=== PATIENT | male | born 1955 | race Caucasian/White ===

== ENCOUNTER 2016-12-23 19:22 | Emergency (ER) | payer MEDICARE, OTHER ==
[~2016-12-23 19:22] MED LIST: ADVAIR DISKU1 INH; AMOXICILLIN250 MG PO; AUGMENTIN875 MG PO; CLARITIN10 MG PO; CLINDAMAX1 %; COLACE100 MG PO; CYCLOBENZAPRINE10 MG PO; FLOVENT HFA110 MCG IN; IBUPROFEN600 MG PO; KEFLEX500 M1 PO; LANTUS SOL100 UNITS/ SC; METFORMIN HCL500 MG PO; MIRALAX3350 N1 PO; MORPHINE SULFAT15 M1 PO; NEURONTIN300 MG PO; NITROSTAT0.4 MG SL; NOVOLOG PE100 UNITS/ SC; OMEPRAZOLE20 M1 PO; PERCOCET1 TA1 PO; PROAIR HFA IN; ZESTRIL10 MG PO
--- NOTE | 2016-12-23 20:21 | ED CLINICAL REPORT ---
Clinical Report - Physicians/Mid Levels [facility] [address] [place] [address] 12/23/2016 19:23 Patient: TAL CANO Time Seen: 19:40. Arrived- By private vehicle. Historian- patient. HISTORY OF PRESENT ILLNESS Chief Complaint: BACK PAIN. It is described as being in the area of the right SI joint. Modifying factors. (worse with movement). Onset- several days to weeks ago; Back surgery 3 years ago, infection , skin graft and foot graft. No bladder dysfunction, bowel dysfunction or motor loss. Sensory loss involving the right lower leg. Additional history - Took morphine for similar pain formerly- His pain [facility] consultant's clinic was forced to close. Now no morphine for his pain for 3 weeks. No other injury. Similar symptoms previously: Many times. Recent medical care: Not recently seen/assessed. REVIEW OF SYSTEMS No fever, sore throat, cough, difficulty breathing or chest pain. No abdominal pain. PAST HISTORY PCP: Ehsan [facility] Illness: Chronic pain - Right leg. DM Forniers gangreen with excision and skin grafting ADDITIONAL SURGERIES: Carpal Tunnel Surgery. Cholecystectomy. Knee Surgery. Rectal. Scrotal surgery. Tonsillectomy. ADDITIONAL NOTES The nursing notes have been reviewed. PHYSICAL EXAM Vital Signs: 12/23/2016 20:51 BP: 130/50. HR: 72. RR: 20. O2 saturation: 99%. 12/23/2016 19:52 BP: 132/61. HR: 72. RR: 16. O2 saturation: 100%. Temp: 98.1 F. Appearance: Alert. Patient in mild distress. (Moving fairly well. Very cooperative and well spoken not advocating for morphine). CVS: Heart sounds normal. Respiratory: No respiratory distress. Breath sounds normal. Abdomen: No visible injury. Soft and nontender. Obese. Back: Soft tissue tenderness in the right lower lumbar area. No CVA tenderness. Skin: Skin warm. Normal skin color. Extremities: Extremities exhibit normal ROM. Extremities nontender. Neuro: Altered mental status. No cranial nerve deficit. He has had weakness, (He had a pre existing R foot drop which is not new.). Sensory deficit present. (mild decrease in sensaton in R leg. Similar to prior.). CLINICAL IMPRESSION Acute right sided lumbar radiculopathy. Acute lumbar strain. INSTRUCTIONS (CONTINUE TO TRY TO GET A NEW PAIN DRJayla). Prescription Medications: Hydrocodone/APAP 5mg / 325mg: take 1-2 orally every 4 hours as needed for pain. Dispense twenty (20). No refill. (IF YOU HAVE HYDOROCODE WITHOUT APAP PLEASE SUBSTITUTE THAT.) Robaxin 750 mg: Take 2 orally every 6 hours as needed for muscle spasm. Dispense thirty (30). No refills. Substitution is permissible. Follow-up: Follow up with your doctor in seven days. Understanding of the discharge instructions verbalized by patient. (Electronically signed by Aime Bermudez MD 12/25/2016 23:14)
--- NOTE | 2016-12-23 20:21 | ED NURSING NOTES ---
Clinical Report - Nurses [facility] [address] [place] [address] 12/23/2016 19:23 Patient: TAL CANO TRIAGE Triage time 19:40. Acuity: LEVEL 3. Chief Complaint: (Right flank pain). 19:52 12/23/16. Alert. No acute distress. --19:52 Enoch Koch R.N. 19:52 12/23/16. BP: 132/61. HR: 72. RR: 16. O2 saturation: 100%. Temp: 98.1 F. Pain level now 8/10. --19:52 Enoch Koch R.N. Weight: 127 kg stated. Height/Length: 67 inches Per Patient. BMI: 43.9. --19:48 Enoch Koch R.N. Medications Advair Diskus Inhalation (Aerosol Powder Breath Activated 250-50 mcg/dose), daily. Atorvastatin Calcium Oral (Tablet 20 mg) 1 tablet, daily. Clotrimazole External. Cyclobenzaprine HCl Oral 10 mg, 3x a day. --19:51 Enoch Koch R.N. Fexofenadine HCl Oral (Tablet 180 mg) 1 tablet. Fluticasone Propionate (Inhal) Inhalation. Gabapentin Oral 300 mg, 3x a day. Ibuprofen Oral 800 mg, daily. Lantus Subcutaneous 35 units, every PM. Lisinopril Oral (Tablet 20 mg), 2x a day (1 tab in am and 1/2 tab in afternoon). Loratadine Oral 10 mg, daily. MetFORMIN HCl Oral (Tablet 1000 mg) 1 tablet, daily. Morphine Sulfate Oral 15mg 2-3 tablets daily. Nitrostat Sublingual 0.4 mg, as needed. NovoLOG Subcutaneous 45 units, before meals (45-50 Units at HS). Omeprazole Oral (Tablet Delayed Release 20 mg) 1 tablet, 2x a day. ProAir HFA Inhalation 90 mcg Inhaler, as needed. --19:51 Enoch Koch R.N. Allergies Beta Adrenergic Blockers.(anxiety) --19:51 Enoch Koch R.N. History Arrived by private vehicle. Historian: patient. Accompanied by family. Primary physician (vinod). ( c/o right flank pain, denies any urinary symptoms. States pain is radiating down right leg.). Onset. (2 days ago). Treatment [employer]: None. SOCIAL HX: Former smoker, end date 1991. No alcohol use or drug use. FALL RISK ASSESSMENT: Fall risk assessment completed. No fall risk identified. NUTRITIONAL RISK ASSESSMENT: The nutritional risk assessment revealed no deficiencies. FUNCTIONAL ASSESSMENT: Functional assessment: no impairments noted. LEARNING NEEDS ASSESSMENT: The learning needs assessment revealed no barriers. SKIN INTEGRITY ASSESSMENT: Skin integrity risk assessment completed. No skin integrity risk identified. --19:52 Enoch Koch R.N. PROBLEMS: Perirectal Abscess. Knee Injury. Prior Nosebleeds. Foot Fracture. Abscess. Recent Travel. Allergic Rhinitis. Sinus Problems. Epistaxis. Sinusitis. Contusion. Anemia. Abnormal Liver Function Test. Constipation. Pneumonia. Coronary Artery Disease. Fever. Abdominal Pain. Atypical Chest Pain. Otitis Externa. TMJ Syndrome. Ingrown Toenail. Immunizations. Lifestyle / Substance Problems. Abnormal Test. Upper Extremity Pain. Paresthesia. Tetanus Status. Sleep Apnea. Asthma. Hypercholesterolemia. Hypertension. Diabetes Mellitus. Gastroesophageal Reflux Disease. --19:52 Enoch Koch R.N. ADDITIONAL SURGERIES: Carpal Tunnel Surgery. Cholecystectomy. Knee Surgery. Rectal. Scrotal surgery. Tonsillectomy. --19:52 Enoch Koch R.N. Interventions ID band on patient. To treatment room. --19:52 Enoch Koch R.N. PHYSICAL ASSESSMENT 19:52 12/23/16. Ambulatory to room. GENERAL / NEURO / PSYCH: Alert. Oriented X 4. Appears in pain. HEENT: Mucous membranes are pink. RESPIRATORY: Respirations not labored. CVS: Capillary refill less than 2 seconds. GI / : CVA tenderness. SKIN: Skin is warm and dry. --19:52 Enoch Koch R.N. NURSING PROGRESS NOTES 20:04 12/23/16. The plan of care for this patient has been created. Patient gowned. Head of bed elevated. Call light placed in reach. Bed placed in lowest position. Brakes of bed on. Patient ready for evaluation- chart flagged. --20:04 Enoch Koch R.N. DISPOSITION / DISCHARGE 20:51 12/23/16. Departure time: 2047. Condition at departure: unchanged and stable. No learning barriers present. Discharge instructions provided and reviewed with the patient and family. Reviewed medication(s) side effects, precautions, dosing and course information. Prescription(s) given to the patient. Patient verbalized understanding. Written instructions provided in Croatian. The patient was discharged by the physician. He was discharged home and accompanied by family. He left the Emergency Department ambulatory and via private vehicle. Family member driving. --20:51 Enoch Koch R.N. 20:51 12/23/16. BP: 130/50. HR: 72. RR: 20. O2 saturation: 99%. Pain level now 10/10. --20:51 Enoch Koch R.N. Locked/Released at 12/30/2016 8:59 by Marimar Carter R.N.
--- NOTE | 2016-12-23 20:21 | ED CLINICAL REPORT ---
Clinical Report - Physicians/Mid Levels [facility] [address] [place] [address] 12/23/2016 19:23 Patient: TAL CANO Time Seen: 19:40. Arrived- By private vehicle. Historian- patient. HISTORY OF PRESENT ILLNESS Chief Complaint: BACK PAIN. It is described as being in the area of the right SI joint. Modifying factors. (worse with movement). Onset- several days to weeks ago; Back surgery 3 years ago, infection , skin graft and foot graft. No bladder dysfunction, bowel dysfunction or motor loss. Sensory loss involving the right lower leg. Additional history - Took morphine for similar pain formerly- His pain [employer] consultant's clinic was forced to close. Now no morphine for his pain for 3 weeks. No other injury. Similar symptoms previously: Many times. Recent medical care: Not recently seen/assessed. REVIEW OF SYSTEMS No fever, sore throat, cough, difficulty breathing or chest pain. No abdominal pain. PAST HISTORY PCP: Ehsan PPG Illness: Chronic pain - Right leg. DM Forniers gangreen with excision and skin grafting ADDITIONAL SURGERIES: Carpal Tunnel Surgery. Cholecystectomy. Knee Surgery. Rectal. Scrotal surgery. Tonsillectomy. ADDITIONAL NOTES The nursing notes have been reviewed. PHYSICAL EXAM Vital Signs: 12/23/2016 20:51 BP: 130/50. HR: 72. RR: 20. O2 saturation: 99%. 12/23/2016 19:52 BP: 132/61. HR: 72. RR: 16. O2 saturation: 100%. Temp: 98.1 F. Appearance: Alert. Patient in mild distress. (Moving fairly well. Very cooperative and well spoken not advocating for morphine). CVS: Heart sounds normal. Respiratory: No respiratory distress. Breath sounds normal. Abdomen: No visible injury. Soft and nontender. Obese. Back: Soft tissue tenderness in the right lower lumbar area. No CVA tenderness. Skin: Skin warm. Normal skin color. Extremities: Extremities exhibit normal ROM. Extremities nontender. Neuro: Altered mental status. No cranial nerve deficit. He has had weakness, (He had a pre existing R foot drop which is not new.). Sensory deficit present. (mild decrease in sensaton in R leg. Similar to prior.). CLINICAL IMPRESSION Acute right sided lumbar radiculopathy. Acute lumbar strain. INSTRUCTIONS (CONTINUE TO TRY TO GET A NEW PAIN DRJayla). Prescription Medications: Hydrocodone/APAP 5mg / 325mg: take 1-2 orally every 4 hours as needed for pain. Dispense twenty (20). No refill. (IF YOU HAVE HYDOROCODE WITHOUT APAP PLEASE SUBSTITUTE THAT.) Robaxin 750 mg: Take 2 orally every 6 hours as needed for muscle spasm. Dispense thirty (30). No refills. Substitution is permissible. Follow-up: Follow up with your doctor in seven days. Understanding of the discharge instructions verbalized by patient. (Electronically signed by Aime Bermudez MD 12/25/2016 23:14)
--- NOTE | 2016-12-23 20:21 | ED NURSING NOTES ---
Clinical Report - Nurses [facility] [address] [place] [address] 12/23/2016 19:23 Patient: TAL CANO TRIAGE Triage time 19:40. Acuity: LEVEL 3. Chief Complaint: (Right flank pain). 19:52 12/23/16. Alert. No acute distress. --19:52 Enoch Koch R.N. 19:52 12/23/16. BP: 132/61. HR: 72. RR: 16. O2 saturation: 100%. Temp: 98.1 F. Pain level now 8/10. --19:52 Enoch Koch R.N. Weight: 127 kg stated. Height/Length: 67 inches Per Patient. BMI: 43.9. --19:48 Enoch Koch R.N. Medications Advair Diskus Inhalation (Aerosol Powder Breath Activated 250-50 mcg/dose), daily. Atorvastatin Calcium Oral (Tablet 20 mg) 1 tablet, daily. Clotrimazole External. Cyclobenzaprine HCl Oral 10 mg, 3x a day. --19:51 Enoch Koch R.N. Fexofenadine HCl Oral (Tablet 180 mg) 1 tablet. Fluticasone Propionate (Inhal) Inhalation. Gabapentin Oral 300 mg, 3x a day. Ibuprofen Oral 800 mg, daily. Lantus Subcutaneous 35 units, every PM. Lisinopril Oral (Tablet 20 mg), 2x a day (1 tab in am and 1/2 tab in afternoon). Loratadine Oral 10 mg, daily. MetFORMIN HCl Oral (Tablet 1000 mg) 1 tablet, daily. Morphine Sulfate Oral 15mg 2-3 tablets daily. Nitrostat Sublingual 0.4 mg, as needed. NovoLOG Subcutaneous 45 units, before meals (45-50 Units at HS). Omeprazole Oral (Tablet Delayed Release 20 mg) 1 tablet, 2x a day. ProAir HFA Inhalation 90 mcg Inhaler, as needed. --19:51 Enoch Koch R.N. Allergies Beta Adrenergic Blockers.(anxiety) --19:51 Enoch Koch R.N. History Arrived by private vehicle. Historian: patient. Accompanied by family. Primary physician (vinod). ( c/o right flank pain, denies any urinary symptoms. States pain is radiating down right leg.). Onset. (2 days ago). Treatment LOB[employer] MAN: None. SOCIAL HX: Former smoker, end date 1991. No alcohol use or drug use. FALL RISK ASSESSMENT: Fall risk assessment completed. No fall risk identified. NUTRITIONAL RISK ASSESSMENT: The nutritional risk assessment revealed no deficiencies. FUNCTIONAL ASSESSMENT: Functional assessment: no impairments noted. LEARNING NEEDS ASSESSMENT: The learning needs assessment revealed no barriers. SKIN INTEGRITY ASSESSMENT: Skin integrity risk assessment completed. No skin integrity risk identified. --19:52 Enoch Koch R.N. PROBLEMS: Perirectal Abscess. Knee Injury. Prior Nosebleeds. Foot Fracture. Abscess. Recent Travel. Allergic Rhinitis. Sinus Problems. Epistaxis. Sinusitis. Contusion. Anemia. Abnormal Liver Function Test. Constipation. Pneumonia. Coronary Artery Disease. Fever. Abdominal Pain. Atypical Chest Pain. Otitis Externa. TMJ Syndrome. Ingrown Toenail. Immunizations. Lifestyle / Substance Problems. Abnormal Test. Upper Extremity Pain. Paresthesia. Tetanus Status. Sleep Apnea. Asthma. Hypercholesterolemia. Hypertension. Diabetes Mellitus. Gastroesophageal Reflux Disease. --19:52 Enoch Koch R.N. ADDITIONAL SURGERIES: Carpal Tunnel Surgery. Cholecystectomy. Knee Surgery. Rectal. Scrotal surgery. Tonsillectomy. --19:52 Enoch Koch R.N. Interventions ID band on patient. To treatment room. --19:52 Enoch Koch R.N. PHYSICAL ASSESSMENT 19:52 12/23/16. Ambulatory to room. GENERAL / NEURO / PSYCH: Alert. Oriented X 4. Appears in pain. HEENT: Mucous membranes are pink. RESPIRATORY: Respirations not labored. CVS: Capillary refill less than 2 seconds. GI / : CVA tenderness. SKIN: Skin is warm and dry. --19:52 Enoch Koch R.N. NURSING PROGRESS NOTES 20:04 12/23/16. The plan of care for this patient has been created. Patient gowned. Head of bed elevated. Call light placed in reach. Bed placed in lowest position. Brakes of bed on. Patient ready for evaluation- chart flagged. --20:04 Enoch Koch R.N. DISPOSITION / DISCHARGE 20:51 12/23/16. Departure time: 2047. Condition at departure: unchanged and stable. No learning barriers present. Discharge instructions provided and reviewed with the patient and family. Reviewed medication(s) side effects, precautions, dosing and course information. Prescription(s) given to the patient. Patient verbalized understanding. Written instructions provided in Latvian. The patient was discharged by the physician. He was discharged home and accompanied by family. He left the Emergency Department ambulatory and via private vehicle. Family member driving. --20:51 Enoch Koch R.N. 20:51 12/23/16. BP: 130/50. HR: 72. RR: 20. O2 saturation: 99%. Pain level now 10/10. --20:51 Enoch Koch R.N. Locked/Released at 12/30/2016 8:59 by Marimar Carter R.N.
--- NOTE | 2016-12-30 08:59 | ED DISCHARGE INSTRUCTIONS ---
Patient: TAL CANO General Instructions [facility] VisitID: [id number] [address] [place] [address] 61y, M Registration Date/Time: 12/23/2016 Acute right sided lumbar radiculopathy. Acute lumbar strain. INSTRUCTIONS (CONTINUE TO TRY TO GET A NEW PAIN DR.). Prescription Medications: Hydrocodone/APAP 5mg / 325mg: take 1-2 orally every 4 hours as needed for pain. Dispense twenty (20). No refill. (IF YOU HAVE HYDOROCODE WITHOUT APAP PLEASE SUBSTITUTE THAT.) Robaxin 750 mg: Take 2 orally every 6 hours as needed for muscle spasm. Dispense thirty (30). No refills. Substitution is permissible. Follow-up: Follow up with your doctor in seven days. Understanding of the discharge instructions verbalized by patient. ADDITIONAL INFORMATION Sciatica Sciatica ("Lumbar Radiculopathy") causes a pain that spreads from the lower back down into the buttock, hip and leg. Sometimes leg pain can occur without any back pain. Sciatica is due to irritation or pressure on a spinal nerve as it comes out of the spinal canal. This is most often due to a bulge or rupture of a nearby spinal disk (the cartilage cushion between each spinal bone), which presses on a nearby nerve. Other causes include spinal stenosis (narrowing of the spinal canal) and spasm of the pyriform muscle (a muscle in the buttocks that the sciatic nerve passes through). Sciatica may begin after a sudden twisting/bending force (such as in a car accident), or sometimes after a simple awkward movement. In either case, muscle spasm is commonly present and contributes to the pain. The diagnosis of sciatica is made from the symptoms and physical exam. Unless you had a physical injury (such as a car accident or fall), X-rays are usually not ordered for the initial evaluation of sciatica because the nerves and disks cannot be seen on an x-ray. If signs of a compressed nerve are present (for example, loss of tendon reflex or strength in the leg), an MRI (magnetic resonance imaging) scan will need to be scheduled as an outpatient. Most sciatica (80-90%) gets better with medicine, exercise, physical therapy. If symptoms continue after at least three months of medical treatment, surgery may be considered. Home Care: You may need to stay in bed the first few days. But, as soon as possible, begin sitting or walking to avoid problems with prolonged bed rest. When in bed, try to find a position of comfort. A firm mattress is best. Try lying flat on your back with pillows under your knees. You can also try lying on your side with your knees bent up towards your chest and a pillow between your knees. Avoid prolonged sitting. This puts more stress on the lower back than standing or walking. Some persons find relief with heat (hot shower, hot bath or heating pad) and massage, while others prefer cold packs (crushed or cubed ice in a plastic bag, wrapped in a towel). Try both and use the method that feels best for 20 minutes several times a day. You may use acetaminophen (Tylenol) or ibuprofen (Motrin, Advil) to control pain, unless another pain medicine was prescribed. [ NOTE: If you have chronic liver or kidney disease or ever had a stomach ulcer or GI bleeding, talk with your doctor before using these medicines.] Be aware of safe lifting methods and do not lift anything over 15 pounds until all the pain is gone. Follow Up with your doctor or this facility if your symptoms do not start to improve after one week. Physical therapy or further testing may be needed. [NOTE: If X-rays were taken, they will be reviewed by a radiologist. You will be notified of any new findings that may affect your care.] Get Prompt Medical Attention if any of the following occur: Pain becomes worse, not controlled by the prescribed medicine Weakness or numbness in one or both legs Numbness in the groin, genital area Loss of bowel or bladder control Sciatica Sciatica ("Lumbar Radiculopathy") causes a pain that spreads from the lower back down into the buttock, hip and leg. Sometimes leg pain can occur without any back pain. Sciatica is due to irritation or pressure on a spinal nerve as it comes out of the spinal canal. This is most often due to a bulge or rupture of a nearby spinal disk (the cartilage cushion between each spinal bone), which presses on a nearby nerve. Other causes include spinal stenosis (narrowing of the spinal canal) and spasm of the pyriform muscle (a muscle in the buttocks that the sciatic nerve passes through). Sciatica may begin after a sudden twisting/bending force (such as in a car accident), or sometimes after a simple awkward movement. In either case, muscle spasm is commonly present and contributes to the pain. The diagnosis of sciatica is made from the symptoms and physical exam. Unless you had a physical injury (such as a car accident or fall), X-rays are usually not ordered for the initial evaluation of sciatica because the nerves and disks cannot be seen on an x-ray. If signs of a compressed nerve are present (for example, loss of tendon reflex or strength in the leg), an MRI (magnetic resonance imaging) scan will need to be scheduled as an outpatient. Most sciatica (80-90%) gets better with medicine, exercise, physical therapy. If symptoms continue after at least three months of medical treatment, surgery may be considered. Home Care: You may need to stay in bed the first few days. But, as soon as possible, begin sitting or walking to avoid problems with prolonged bed rest. When in bed, try to find a position of comfort. A firm mattress is best. Try lying flat on your back with pillows under your knees. You can also try lying on your side with your knees bent up towards your chest and a pillow between your knees. Avoid prolonged sitting. This puts more stress on the lower back than standing or walking. Some persons find relief with heat (hot shower, hot bath or heating pad) and massage, while others prefer cold packs (crushed or cubed ice in a plastic bag, wrapped in a towel). Try both and use the method that feels best for 20 minutes several times a day. You may use acetaminophen (Tylenol) or ibuprofen (Motrin, Advil) to control pain, unless another pain medicine was prescribed. [ NOTE: If you have chronic liver or kidney disease or ever had a stomach ulcer or GI bleeding, talk with your doctor before using these medicines.] Be aware of safe lifting methods and do not lift anything over 15 pounds until all the pain is gone. Follow Up with your doctor or this facility if your symptoms do not start to improve after one week. Physical therapy or further testing may be needed. [NOTE: If X-rays were taken, they will be reviewed by a radiologist. You will be notified of any new findings that may affect your care.] Get Prompt Medical Attention if any of the following occur: Pain becomes worse, not controlled by the prescribed medicine Weakness or numbness in one or both legs Numbness in the groin, genital area Loss of bowel or bladder control Hydrocodone Bitartrate, Acetaminophen Oral tablet What is this medicine? ACETAMINOPHEN; HYDROCODONE (a set a HEATHER arthur fen; robby droe KOE done) is a pain reliever. It is used to treat mild to moderate pain. How should I use this medicine? Take this medicine by mouth. Swallow it with a full glass of water. Follow the directions on the prescription label. If the medicine upsets your stomach, take the medicine with food or milk. Do not take more than you are told to take. Talk to your delivery supervisor regarding the use of this medicine in children. This medicine is not approved for use in children. What side effects may I notice from receiving this medicine? Side effects that you should report to your doctor or health personal care service provider as soon as possible: allergic reactions like skin rash, itching or hives, swelling of the face, lips, or tongue breathing problems confusion feeling faint or lightheaded, falls stomach pain yellowing of the eyes or skin Side effects that usually do not require medical attention (report to your doctor or health personal care service provider if they continue or are bothersome): nausea, vomiting stomach upset What may interact with this medicine? alcohol antihistamines isoniazid medicines for depression, anxiety, or psychotic disturbances medicines for sleep muscle relaxants naltrexone narcotic medicines (opiates) for pain phenobarbital ritonavir tramadol What if I miss a dose? If you miss a dose, take it as soon as you can. If it is almost time for your next dose, take only that dose. Do not take double or extra doses. Where should I keep my medicine? Keep out of the reach of children. This medicine can be abused. Keep your medicine in a safe place to protect it from theft. Do not share this medicine with anyone. Selling or giving away this medicine is dangerous and against the law. Store at room temperature between 15 and 30 degrees C (59 and 86 degrees F). Protect from light. Keep container tightly closed. Throw away any unused medicine after the expiration date. Discard unused medicine and used packaging carefully. Pets and children can be harmed if they find used or lost packages. What should I tell my health care provider before I take this medicine? They need to know if you have any of these conditions: brain tumor Crohn's disease, inflammatory bowel disease, or ulcerative colitis drink more than 3 alcohol-containing drinks per day drug abuse or addiction head injury heart or circulation problems kidney disease or problems going to the bathroom liver disease lung disease, asthma, or breathing problems an unusual or allergic reaction to acetaminophen, hydrocodone, other opioid analgesics, other medicines, foods, dyes, or preservatives or trying to get breast-feeding What should I watch for while using this medicine? Tell your doctor or health personal care service provider if your pain does not go away, if it gets worse, or if you have new or a different type of pain. You may develop tolerance to the medicine. Tolerance means that you will need a higher dose of the medicine for pain relief. Tolerance is normal and is expected if you take the medicine for a long time. Do not suddenly stop taking your medicine because you may develop a severe reaction. Your body becomes used to the medicine. This does NOT mean you are addicted. Addiction is a behavior related to getting and using a drug for a non-medical reason. If you have pain, you have a medical reason to take pain medicine. Your doctor will tell you how much medicine to take. If your doctor wants you to stop the medicine, the dose will be slowly lowered over time to avoid any side effects. You may get drowsy or dizzy when you first start taking the medicine or change doses. Do not drive, use machinery, or do anything that may be dangerous until you know how the medicine affects you. Stand or sit up slowly. There are different types of narcotic medicines (opiates) for pain. If you take more than one type at the same time, you may have more side effects. Give your health care provider a list of all medicines you use. Your doctor will tell you how much medicine to take. Do not take more medicine than directed. Call emergency for help if you have problems breathing. The medicine will cause constipation. Try to have a bowel movement at least every 2 to 3 days. If you do not have a bowel movement for 3 days, call your doctor or health personal care service provider. Too much acetaminophen can be very dangerous. Do not take Tylenol (acetaminophen) or medicines that contain acetaminophen with this medicine. Many non-prescription medicines contain acetaminophen. Always read the labels carefully. You have been given the following additional information: Back Pain W/ Sciatica Back Pain W/ Sciatica Hydrocodone Bitartrate, Acetaminophen Oral tablet (Electronically signed by Aime Bermudez MD 12/25/2016 23:14)
--- NOTE | 2016-12-30 08:59 | ED MAR SUMMARY ---
..... Medication Administration Record [facility] [address] [place], [place] [id number] Patient: TAL CANO Visit ID: [id number] 61y, M Weight: 127.0 kg Height/Length: 67 in BMI: 43.9 ALLERGIES: Beta Adrenergic Blockers
--- NOTE | 2016-12-30 08:59 | ED MED RECONCILIATION SUMMARY ---
Patient: TAL CANO Medication Reconciliation Report [facility] VisitID: [id number] [address] [place] [address] 61y, M Registration Date/Time: 12/23/2016 Weight: 127.0 kg Height/Length: 67 in. BMI: 43.9 ALLERGIES: Beta Adrenergic Blockers The patient's Home Medications are listed below: THE FOLLOWING MEDICATIONS NEED TO BE RECONCILED: Advair Diskus Inhalation (250-50 mcg/dose), daily Atorvastatin Calcium Oral (20 mg) 1 tablet, daily Clotrimazole External Cyclobenzaprine HCl Oral 10 mg, 3x a day Fexofenadine HCl Oral (180 mg) 1 tablet Fluticasone Propionate (Inhal) Inhalation Gabapentin Oral 300 mg, 3x a day Ibuprofen Oral 800 mg, daily Lantus Subcutaneous 35 units, every PM Lisinopril Oral (20 mg), 2x a day, 1 tab in am and 1/2 tab in afternoon Loratadine Oral 10 mg, daily MetFORMIN HCl Oral (1000 mg) 1 tablet, daily Morphine Sulfate Oral 15mg 2-3 tablets daily Nitrostat Sublingual 0.4 mg NovoLOG Subcutaneous 45 units, before meals, 45-50 Units at HS Omeprazole Oral (20 mg) 1 tablet, 2x a day ProAir HFA Inhalation 90 mcg Inhaler The source(s) of the original Home Medication information: Not obtained. The following Medications were given to the patient in the Emergency Department: None. The following Medications were prescribed to the patient: Hydrocodone/APAP 5mg / 325mg: take 1-2 orally every 4 hours as needed for pain. Dispense twenty (20). No refill.(IF YOU HAVE HYDOROCODE WITHOUT APAP PLEASE SUBSTITUTE THAT.) -- Aime Bermudez MD Robaxin 750 mg: Take 2 orally every 6 hours as needed for muscle spasm. Dispense thirty (30). No refills. Substitution is permissible. -- Aime Bermudez MD
--- NOTE | 2016-12-30 08:59 | ED MAR SUMMARY ---
..... Medication Administration Record [facility] [address] [place], [place] [id number] Patient: TAL CANO Visit ID: [id number] 61y, M Weight: 127.0 kg Height/Length: 67 in BMI: 43.9 ALLERGIES: Beta Adrenergic Blockers
--- NOTE | 2016-12-30 08:59 | ED MED RECONCILIATION SUMMARY ---
Patient: TAL CANO Medication Reconciliation Report [facility] VisitID: [id number] [address] [place] [address] 61y, M Registration Date/Time: 12/23/2016 Weight: 127.0 kg Height/Length: 67 in. BMI: 43.9 ALLERGIES: Beta Adrenergic Blockers The patient's Home Medications are listed below: THE FOLLOWING MEDICATIONS NEED TO BE RECONCILED: Advair Diskus Inhalation (250-50 mcg/dose), daily Atorvastatin Calcium Oral (20 mg) 1 tablet, daily Clotrimazole External Cyclobenzaprine HCl Oral 10 mg, 3x a day Fexofenadine HCl Oral (180 mg) 1 tablet Fluticasone Propionate (Inhal) Inhalation Gabapentin Oral 300 mg, 3x a day Ibuprofen Oral 800 mg, daily Lantus Subcutaneous 35 units, every PM Lisinopril Oral (20 mg), 2x a day, 1 tab in am and 1/2 tab in afternoon Loratadine Oral 10 mg, daily MetFORMIN HCl Oral (1000 mg) 1 tablet, daily Morphine Sulfate Oral 15mg 2-3 tablets daily Nitrostat Sublingual 0.4 mg NovoLOG Subcutaneous 45 units, before meals, 45-50 Units at HS Omeprazole Oral (20 mg) 1 tablet, 2x a day ProAir HFA Inhalation 90 mcg Inhaler The source(s) of the original Home Medication information: Not obtained. The following Medications were given to the patient in the Emergency Department: None. The following Medications were prescribed to the patient: Hydrocodone/APAP 5mg / 325mg: take 1-2 orally every 4 hours as needed for pain. Dispense twenty (20). No refill.(IF YOU HAVE HYDOROCODE WITHOUT APAP PLEASE SUBSTITUTE THAT.) -- Aime Bermudez MD Robaxin 750 mg: Take 2 orally every 6 hours as needed for muscle spasm. Dispense thirty (30). No refills. Substitution is permissible. -- Aime Bermudez MD
== END 2016-12-23 20:48 | disposition home or self-care (01) ==
LOC: ED SRH 19:22
DX: S39.012A Strain of muscle, fascia and tendon of lower back, initial encounter (principal); M54.16 Radiculopathy, lumbar region; X58.XXXA Exposure to other specified factors, initial encounter; Y93.9 Activity, unspecified; Y92.9 Unspecified place or not applicable; Y99.9 Unspecified external cause status; E11.9 Type 2 diabetes mellitus without complications; Z79.4 Long term (current) use of insulin; Z88.8 Allergy status to other drugs, medicaments and biological substances; Z79.899 Other long term (current) drug therapy

== ENCOUNTER 2017-02-24 14:30 | Emergency (ER) | payer MEDICARE, OTHER ==
--- NOTE | 2017-02-24 19:08 | DIAGNOSTIC IMAGING REPORT ---
PROCEDURE: CT ABD/PELVIS WITH CONTRAST CLINICAL INDICATION: History of rectal abscess surgery (rate most recently 01/28/2017). History of cirrhosis right abdominal pain the TECHNIQUE: 145 ml of Isovue 300 were injected intravenously and axial images were obtained of the entire abdomen and pelvis with sagittal and coronal reformations. COMPARISON: Compared to CT abdomen and pelvis on 07/11/2016. FINDINGS: ABDOMEN: Cholecystectomy (surgical clips). Cirrhosis of the liver. Marked splenomegaly (26 cm) with portal hypertension. Pancreas, kidneys, and aorta are normal. Bowel pattern is normal, including appendix. PELVIS: Interim evacuation and drainage of right posterior perirectal abscess with moderate residual soft tissue thickening. No evidence of fluid collection. The rest of pelvic structures are normal. IMPRESSION: 1. Cholecystectomy. 2. Cirrhosis with portal hypertension and marked splenomegaly (26 cm). (Previously documented). 3. Otherwise negative abdomen. 4. Interim drainage of right posterior perirectal abscess with residual soft tissue thickening. No evidence of recurrent fluid collection. 5. Findings discussed with Dr. Scott Barnes. All CT scans at this facility use dose modulation, iterative reconstruction, and/or weight-based dosing when appropriate to reduce radiation dose to as low as reasonably achievable.
--- NOTE | 2017-02-24 19:58 | ED CLINICAL REPORT ---
Clinical Report - Physicians/Mid Levels [facility] [address] [place] [address] 02/24/2017 14:30 Patient: TAL CANO Time Seen: 14:58; initial patient contact. Arrived- By private vehicle. Historian- patient. HISTORY OF PRESENT ILLNESS Chief Complaint: ABDOMINAL PAIN. At its maximum, severity described as mild. When seen in the E.D., severity described as mild. Modifying factors. Not worsened by anything. Not relieved by anything. It is described as cramping and it is described as located in the right pelvis and radiating to the right lower back. This started about 3 days ago and is still present. No nausea, vomiting or diarrhea. (Similar to episodes when a perirectal fistula acts up. Denies current drainage from fistula.). Similar symptoms previously: Many times. Recent medical care: Not recently seen/assessed. REVIEW OF SYSTEMS No constipation, bloody stools, fever or chills. All systems otherwise negative, except as recorded above. PAST HISTORY Lumbar Radiculopathy. Perirectal Abscess. Foot Fracture. Abscess. Allergic Rhinitis. Epistaxis. Contusion. Anemia. Abnormal Liver Function Test. Pneumonia. Coronary Artery Disease. Abdominal Pain. Atypical Chest Pain. Otitis Externa. TMJ Syndrome. Lifestyle / Substance Problems. Paresthesia. Sleep Apnea. Gastroesophageal Reflux Disease. Hypercholesterolemia. Asthma. Diabetes Mellitus. Hypertension. Cervical Radiculopathy [ ADDITIONAL SURGERIES: Carpal Tunnel Surgery. Cholecystectomy. Knee Surgery. Mesh implant for rectum fistula. Rectal. Scrotal surgery. Tonsillectomy. SOCIAL HISTORY Former smoker. Alcohol use. Patient is a recovering alcoholic. No drug use. ADDITIONAL NOTES The nursing notes have been reviewed. PHYSICAL EXAM Vital Signs: 02/24/2017 14:45 BP: 147/50. HR: 72. RR: 15. O2 saturation: 100%. Temp: 98.2 F. Pain level now: 8/10. Have been reviewed. Hypertensive. Heart rate normal. Respiratory rate normal. Temperature normal. Oxygen saturation normal. Appearance: Alert. Oriented X3. No acute distress. Eyes: Eyes normal inspection. ENT: Pharynx normal. CVS: Normal heart rate and rhythm. Heart sounds normal. Respiratory: No respiratory distress. Breath sounds normal. Abdomen: Soft. Mild tenderness in the right lower quadrant. No guarding or rebound tenderness. Bowel sounds normal. No organomegaly. No mass. Back: Normal inspection. No CVA tenderness. Rectal: (Well healed perirectal fistula. Non-tender. No fluctuance or drainage.). Skin: Skin warm and dry. Normal skin color. No rash. Extremities: No lower extremity edema. Neuro: Oriented X 3. No motor deficit. LABS, X-RAYS, AND EKG Abdominal CT: 1. Cholecystectomy. 2. Cirrhosis with portal hypertension and marked splenomegaly (26 cm). (Previously documented). 3. Otherwise negative abdomen. 4. Interim drainage of right posterior perirectal abscess with residual soft tissue thickening. No evidence of recurrent fluid collection. Study type: abdomen and pelvis. Abdominal CT performed with IV contrast. The study was interpreted by the radiologist and discussed with the radiologist. Laboratory Tests: UA-Culture if indicated: (CITLALI: 02/24/2017 15:10) ( [facility] 02/24/2017 16:26) Final results Test Result Flag Units (Reference) URINE COLOR YELLOW URINE APPEARANCE CLEAR URINE GLUCOSE 3+ (NEGATIVE) URINE BILIRUBIN NEGATIVE (NEGATIVE) URINE KETONE NEGATIVE (NEGATIVE) URINE SPECIFIC GRAVITY <= 1.005 L (1.010-1.030) URINE PH 5.5 (5.0-8.0) URINE PROTEIN NEGATIVE (NEGATIVE) URINE UROBILINOGEN 1.0 EU/dL (0.2-1.0) URINE NITRITE NEGATIVE (NEGATIVE) URINE BLOOD NEGATIVE (NEGATIVE) URINE LEUK ESTERASE NEGATIVE (NEGATIVE) URINE RBC NONE SEEN rbc/hpf (0-1) URINE WBC 0-1 wbc/hpf (0-1) URINE EPITHELIAL CELLS 0-1 EPI/hpf (0-5) URINE BACTERIA NONE SEEN (NONE SEEN) URINE COMMENT CULT NOT INDICATED URINE CULTURES ARE SET-UP BASED ON THE FOLLOWING CRITERIA:POSITIVE NITRITEPOSITIVE LEUKOCYTE ESTERASEGREATER THAN 10 WHITE BLOOD CELLSMODERATE (2+) OR GREATER BACTERIA CBC w Diff: (CITLALI: 02/24/2017 15:10) ( [facility] 02/24/2017 16:11) Final results Test Result Flag Units (Reference) WHITE BLOOD COUNT 2.5 L K/uL (4.5-11.5) RED BLOOD COUNT 3.39 L M/uL (4.50-5.90) HEMOGLOBIN 10.1 L gm/dL (13.5-17.5) HEMATOCRIT 29.7 L % (41.0-53.0) MEAN CELL VOLUME 88 fL (80-100) MEAN CORPUSCULAR HGB 30 pg (26-34) MEAN CORPUSCULAR HGB CONC 34 g/dL (31-37) RED CELL DISTRIBUTION WIDTH 16.3 H % (11.6-14.8) PLATELET COUNT 58 L K/uL (150-400) NEUTROPHIL % 74.2 % (50-75) LYMPH % 18.0 L % (25-40) MONO % 5.5 % (3-14) EOSINOPHIL % 1.9 % (0-4) BASOPHIL % 0.4 % (0-2) CMP: (CITLALI: 02/24/2017 15:10) ( MsgRcvd 02/24/2017 16:23) Final results Test Result Flag Units (Reference) GLUCOSE 281 H mg/dL (70-110) BUN 18 mg/dL (7-18) CREATININE 1.3 mg/dL (0.6-1.3) Estimated GFR >60 mL/min Estimated GFR- >60 mL/min Note: Persistent reduction over 3 months in eGFR<60 mL/min/1.73 m2 defines CKD. Patients with eGFR values>=60 mL/min/1.73 m2 may also have CKD if evidence ofpersistent proteinuria. Additional information may be foundat [email or web address].org. SODIUM 139 mmol/L (136-145) POTASSIUM 3.9 mmol/L (3.5-5.1) CHLORIDE 105 mmol/L (98-107) CARBON DIOXIDE 25 mmol/L (21-32) CALCIUM 8.7 mg/dL (8.5-10.1) TOTAL PROTEIN 7.9 g/dL (6.4-8.2) ALBUMIN 3.1 L g/dL (3.3-5.0) BILIRUBIN, TOTAL 1.4 H mg/dL (0.0-1.0) ALKALINE PHOSPHATASE 400 H U/L (46-116) AST (SGOT) 90 H U/L (15-37) ALT (SGPT) 73 U/L (12-78) LIPASE 339 U/L (73-393) AMYLASE 97 U/L (25-115) . PROGRESS AND PROCEDURES Disposition: Discharged home in good and improved condition. Condition: good. CLINICAL IMPRESSION Acute right lower quadrant abdominal pain of unknown cause. (Chronic Pancytopenia(stable) secondary Dx). INSTRUCTIONS Your Current Medications: CONTINUE TAKING THE FOLLOWING MEDICATIONS: Advair Diskus Inhalation : Aerosol Powder Breath Activated 250-50 mcg/dose, daily. Atorvastatin Calcium Oral : Tablet 20 mg, 1 tablet daily. Clotrimazole External. Fexofenadine HCl Oral : Tablet 180 mg, 1 tablet. Fluticasone Propionate (Inhal) Inhalation. Gabapentin Oral : 300 mg 3x a day. Lactulose Oral. Lantus Subcutaneous : 35 units every PM. Lisinopril Oral : Tablet 20 mg, 2x a day, 1 tab in am and 1/2 tab in afternoon. Loratadine Oral : 10 mg daily. MetFORMIN HCl Oral : Tablet 1000 mg, 1 tablet daily. Nitrostat Sublingual : 0.4 mg, prn. NovoLOG Subcutaneous : 45 units before meals, 45-50 Units at HS. Omeprazole Oral : Tablet Delayed Release 20 mg, 1 tablet 2x a day. ProAir HFA Inhalation : 90 mcg Inhaler, prn. Senna Oral. Trulicity Subcutaneous. Prescription Medications: OxyIR 5 mg capsules: take 1 orally every 6 hours as needed for pain. Dispense fifteen (15). No refill. Follow-up: Follow up with your doctor in about two days. Call for an appointment. Blood pressure screening was not performed during this visit because the patient has an active diagnosis of hypertension. (Electronically signed by Scott Barnes Dr. 02/25/2017 8:57)
--- NOTE | 2017-02-24 19:58 | ED NURSING NOTES ---
Clinical Report - Nurses [facility] [address] [place] [address] 02/24/2017 14:30 Patient: TAL CANO TRIAGE Triage time 1455 PM. Acuity: LEVEL 3. Chief Complaint: ABDOMINAL PAIN. Alert. No acute distress. ZULEMA COMA SCORE: Zulema Coma Scale: 15- eyes open spontaneously (4); best verbal response- oriented x 4 (5); best motor response- obeys commands (6). --14:59 Micaela Landaverde R.N. 14:45 02/24/17. BP: 147/50 (regular adult cuff) taken on the left arm, via an automated monitor, while sitting. HR: 72. RR: 15. O2 saturation: 100%. Temp: 98.2 F (oral). Pain level now: 8. --14:59 Micaela Landaverde R.N. Weight: 127 kg stated. Height/Length: 67 inches Per Patient. BMI: 43.9. --14:46 Micaela Landaverde R.N. Medications Advair Diskus Inhalation (Aerosol Powder Breath Activated 250-50 mcg/dose), daily. Atorvastatin Calcium Oral (Tablet 20 mg) 1 tablet, daily. Clotrimazole External. Fexofenadine HCl Oral (Tablet 180 mg) 1 tablet. Fluticasone Propionate (Inhal) Inhalation. Gabapentin Oral 300 mg, 3x a day. Lantus Subcutaneous 35 units, every PM. Lisinopril Oral (Tablet 20 mg), 2x a day (1 tab in am and 1/2 tab in afternoon). Loratadine Oral 10 mg, daily. MetFORMIN HCl Oral (Tablet 1000 mg) 1 tablet, daily. Nitrostat Sublingual 0.4 mg, as needed. --14:50 Micaela Landaverde R.N. NovoLOG Subcutaneous 45 units, before meals (45-50 Units at HS). Omeprazole Oral (Tablet Delayed Release 20 mg) 1 tablet, 2x a day. ProAir HFA Inhalation 90 mcg Inhaler, as needed. --14:50 Micaela Landaverde R.N. Lactulose Oral. --14:51 Micaela Landaverde R.N. Senna Oral. --14:51 Micaela Landaverde R.N. Trulicity Subcutaneous. --14:51 Micaela Landaverde R.N. Allergies Beta Adrenergic Blockers.(anxiety) --14:50 Micaela Landaverde R.N. Medication/allergy information source: the patient. --14:59 Micaela Landaverde R.N. History Arrived by private vehicle. Historian: patient and family. Accompanied by family. Primary physician (Dr. Moser- Dr. LYNN ()). ( Pt states having recurrent right lower quadrant pain which feels like his rectal fistula, pt just had surgery on it on January 28 at . Daughter states that this is usually found via CT scan and if he needs surgery he needs to be transferred to . Pain started on Thursday, intermittent and feels like a "cramp". Pt is Luxembourgish speaking but daughter is POA and able to translate). Onset. (3 days). He has had nausea and abdominal pain. No diarrhea, constipation or fever. 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 PAST MEDICAL HX: Immunizations: up-to-date. SOCIAL HX: Former smoker, end date 1988. Alcohol use. Patient is a recovering alcoholic. No drug use. No recent travel. No infectious disease exposure. No known contact with a sick individual. SELF HARM ASSESSMENT: A self harm assessment was performed. The patient answered "no" to the question "Do you have thoughts of harming or killing yourself?" and "Have you recently had thoughts about harming or killing others?". FALL RISK ASSESSMENT: Fall risk assessment completed. No fall risk identified. NUTRITIONAL RISK ASSESSMENT: The nutritional risk assessment revealed no deficiencies. FUNCTIONAL ASSESSMENT: Functional assessment: no impairments noted. LEARNING NEEDS ASSESSMENT: The learning needs assessment revealed no barriers. SKIN INTEGRITY ASSESSMENT: Skin integrity risk assessment completed. No skin integrity risk identified. --14:59 Micaela Landaverde R.N. ( Pt denies any vomiting, diarrhea, fever, trouble urinating or constipation). --15:06 Micaela Landaverde R.N. PROBLEMS: Lumbar Radiculopathy. Perirectal Abscess. Foot Fracture. Abscess. Allergic Rhinitis. Epistaxis. Contusion. Anemia. Abnormal Liver Function Test. Pneumonia. Coronary Artery Disease. Abdominal Pain. Atypical Chest Pain. Otitis Externa. TMJ Syndrome. Lifestyle / Substance Problems. Paresthesia. Sleep Apnea. Gastroesophageal Reflux Disease. Hypercholesterolemia. Asthma. Diabetes Mellitus. Hypertension. --14:53 Micaela Landaverde R.N. Cervical Radiculopathy [RuleOut]. --14:53 Micaela Landaverde R.N. ADDITIONAL SURGERIES: Carpal Tunnel Surgery. Cholecystectomy. Knee Surgery. Mesh implant for rectum fistula. Rectal. Scrotal surgery. Tonsillectomy. --14:53 Micaela Landaverde R.N. Interventions ID band on patient. --14:59 Micaela Landaverde R.N. PHYSICAL ASSESSMENT Ambulatory to room. GENERAL / NEURO / PSYCH: Alert. Oriented X 4. Appears in pain. HEENT: Mucous membranes are pink. RESPIRATORY: Respirations not labored. Decreased breath sounds in the bases bilaterally. Breath sounds within normal limits. CVS: Capillary refill less than 2 seconds. GI / : Abdominal distention. Bowel sounds within normal limits. Normal bowel sounds. No abdominal tenderness, rebound tenderness or guarding. SKIN: Skin is warm and dry. --15:01 Micaela Landaverde R.N. NURSING PROGRESS NOTES The initial plan of care for this patient has been created This plan of care was discussed with the patient and family. Patient gowned. Warming measures: blanket applied. Reassurance given. Two patient identifiers checked. Call light placed in reach. Side rails up x 1. Bed placed in lowest position. Brakes of bed on. Patient ready for evaluation. --15:02 Micaela Landaverde R.N. 15:19 02/24/2017 Site #1 started via IV in the right antecubital space with an 20g angiocath; one attempt. Blood drawn: rainbow set. Labeled in the presence of the patient and sent to the lab. --15:19 Micaela Landaverde R.N. Patient ID band checked for patient name, birthdate and medical record number: patient confirmed. Blood samples drawn from the right antecubital space IV site by nurse per protocol ; labeled in presence of the patient and sent to lab: rainbow set. Reassurance given. Patient ID band checked for patient name, birthdate and medical record number: patient confirmed. Instructions provided to collect clean catch urine and patient verbalized understanding urine collected with return of yellow-colored clear urine; sample sent to lab for urinalysis. Specimen labeled in the presence of the patient. The patient is calm. Overall patient status is the same- he states feels the same. Call light placed in reach. --15:20 Micaela Landaverde R.N. Care transferred and report given (Lorie Posey). --15:21 Micaela Landaverde R.N. 15:41 02/24/17. BP: 141/43. HR: 71. RR: 16. O2 saturation: 98%. --15:43 Kalpesh Rodriguez R.N. DISPOSITION / DISCHARGE 20:06 02/24/2017 Site #1 removed upon discharge. Catheter intact. Bandaid applied. --20:06 Kenji Pitt Departure time: 20:07. Condition at departure: improved. No learning barriers present. Discharge instructions provided and reviewed with the patient. Reviewed medication(s) side effects, precautions, dosing and course information. Prescription(s) given to the patient. Follow up contact number with PCP. Patient verbalized understanding. Written instructions provided in Senegalese. No warning instructions, treatment instructions, referrals given to the patient, diet instructions or activity restrictions. No note given or stop smoking instructions. The patient was discharged by the physician. He was discharged home and accompanied by family. He left the Emergency Department ambulatory and via private vehicle. Family member driving. FALL RISK ASSESSMENT: Fall risk assessment completed. No fall risk identified. --20:07 Kenji Pitt 20:06 02/24/17. BP: 136/70. HR: 70. RR: 18. O2 saturation: 100%. Temp: 97.8 F. Pain level now: 0/10. --20:07 Kenji Pitt Locked/Released at 02/24/2017 20:08 by Kenji Pitt
--- NOTE | 2017-02-24 19:58 | ED ORDER SUMMARY ---
..... Patient: ATL CANO OrderSheet [facility] VisitID: [id number] [address] [place] [address] 61y, M Registration Date/Time: 02/24/2017 ORDER SHEET Weight: 127.0 kg (stated) Allergies: Beta Adrenergic Blockers GENERAL ORDERS: CBC w Diff Urgent (15:52 02/24/2017 Tierar Summers) (Ack 15:55 KHoerner) (15:55 KHoerner) CMP Urgent (15:52 02/24/2017 Tierra Summers) (Ack 15:55 KHoerner) (15:55 KHoerner) Amylase Urgent (15:52 02/24/2017 Tierra Summers) (Ack 15:55 KHoerner) (15:55 KHoerner) Lipase Urgent (15:52 02/24/2017 Tierra Summers) (Ack 15:55 KHoerner) (15:55 KHoerner) UA-Culture if indicated Urgent (15:52 02/24/2017 Tierra Summers) (Ack 15:55 KHoerner) (15:55 KHoerner) CT Abd/Pel w Cont (Yes) (18/1.3) Urgent (18:13 02/24/2017 Tierra Summers) (Ack 18:24 KHoerner) (18:43 MCampbell) MEDICATION ORDERS: IV FLUIDS: IV Saline Lock (15:44 02/24/2017 Sara Phillip verbal order read back to Tierra Summers) (15:44 Sara RJaylaNJayla) ORDER SHEET NOTES: [Electronically signed by Meena Brock R.N. (20:08 02/24/2017)] [Electronically signed by Scott Barnes Dr. (08:57 02/25/2017)] [Electronically locked/signed by Meena Brock R.N. (20:08 02/24/2017)]
--- NOTE | 2017-02-24 19:58 | ED ORDER SUMMARY ---
..... Patient: TAL CANO OrderSheet [facility] VisitID: [id number] [address] [place] [address] 61y, M Registration Date/Time: 02/24/2017 ORDER SHEET Weight: 127.0 kg (stated) Allergies: Beta Adrenergic Blockers GENERAL ORDERS: CBC w Diff Urgent (15:52 02/24/2017 Tierra Summers) (Ack 15:55 KHoerner) (15:55 KHoerner) CMP Urgent (15:52 02/24/2017 Tierra Summers) (Ack 15:55 KHoerner) (15:55 KHoerner) Amylase Urgent (15:52 02/24/2017 Tierra Summers) (Ack 15:55 KHoerner) (15:55 KHoerner) Lipase Urgent (15:52 02/24/2017 Tierra Summers) (Ack 15:55 KHoerner) (15:55 KHoerner) UA-Culture if indicated Urgent (15:52 02/24/2017 Tierra Summers) (Ack 15:55 KHoerner) (15:55 KHoerner) CT Abd/Pel w Cont (Yes) (18/1.3) Urgent (18:13 02/24/2017 Tierra Summers) (Ack 18:24 KHoerner) (18:43 MCampbell) MEDICATION ORDERS: IV FLUIDS: IV Saline Lock (15:44 02/24/2017 Sara Phillip verbal order read back to Tierra Summers) (15:44 Sara RJaylaNJayla) ORDER SHEET NOTES: [Electronically signed by Meena Brock R.N. (20:08 02/24/2017)] [Electronically signed by Scott Barnes Dr. (08:57 02/25/2017)] [Electronically locked/signed by Meena Brock R.N. (20:08 02/24/2017)]
--- NOTE | 2017-02-25 08:57 | ED MAR SUMMARY ---
..... Medication Administration Record [facility] [address] [place], [place] [id number] Patient: TAL CANO Visit ID: [id number] 61y, M Weight: 127.0 kg Height/Length: 67 in BMI: 43.9 ALLERGIES: Beta Adrenergic Blockers
--- NOTE | 2017-02-25 08:57 | ED MED RECONCILIATION SUMMARY ---
Patient: TAL CANO Medication Reconciliation Report [facility] VisitID: [id number] [address] [place] [address] 61y, M Registration Date/Time: 02/24/2017 Weight: 127.0 kg Height/Length: 67 in. BMI: 43.9 ALLERGIES: Beta Adrenergic Blockers The patient's Home Medications are listed below: CONTINUE TAKING THE FOLLOWING MEDICATIONS: Advair Diskus Inhalation (250-50 mcg/dose), daily Atorvastatin Calcium Oral (20 mg) 1 tablet, daily Clotrimazole External Fexofenadine HCl Oral (180 mg) 1 tablet Fluticasone Propionate (Inhal) Inhalation Gabapentin Oral 300 mg, 3x a day Lactulose Oral Lantus Subcutaneous 35 units, every PM Lisinopril Oral (20 mg), 2x a day, 1 tab in am and 1/2 tab in afternoon Loratadine Oral 10 mg, daily MetFORMIN HCl Oral (1000 mg) 1 tablet, daily Nitrostat Sublingual 0.4 mg NovoLOG Subcutaneous 45 units, before meals, 45-50 Units at HS Omeprazole Oral (20 mg) 1 tablet, 2x a day ProAir HFA Inhalation 90 mcg Inhaler Senna Oral Trulicity Subcutaneous The source(s) of the original Home Medication information: patient The following Medications were given to the patient in the Emergency Department: None. The following Medications were prescribed to the patient: OxyIR 5 mg capsules: take 1 orally every 6 hours as needed for pain. Dispense fifteen (15). No refill. -- Scott Barnes Dr.
--- NOTE | 2017-02-25 08:57 | ED DISCHARGE INSTRUCTIONS ---
Patient: TAL CANO General Instructions [facility] VisitID: [id number] [address] [place] [address] 61y, M Registration Date/Time: 02/24/2017 Acute right lower quadrant abdominal pain of unknown cause. (Chronic Pancytopenia(stable) secondary Dx). INSTRUCTIONS Your Current Medications: CONTINUE TAKING THE FOLLOWING MEDICATIONS: Advair Diskus Inhalation : Aerosol Powder Breath Activated 250-50 mcg/dose, daily. Atorvastatin Calcium Oral : Tablet 20 mg, 1 tablet daily. Clotrimazole External. Fexofenadine HCl Oral : Tablet 180 mg, 1 tablet. Fluticasone Propionate (Inhal) Inhalation. Gabapentin Oral : 300 mg 3x a day. Lactulose Oral. Lantus Subcutaneous : 35 units every PM. Lisinopril Oral : Tablet 20 mg, 2x a day, 1 tab in am and 1/2 tab in afternoon. Loratadine Oral : 10 mg daily. MetFORMIN HCl Oral : Tablet 1000 mg, 1 tablet daily. Nitrostat Sublingual : 0.4 mg, prn. NovoLOG Subcutaneous : 45 units before meals, 45-50 Units at HS. Omeprazole Oral : Tablet Delayed Release 20 mg, 1 tablet 2x a day. ProAir HFA Inhalation : 90 mcg Inhaler, prn. Senna Oral. Trulicity Subcutaneous. Prescription Medications: OxyIR 5 mg capsules: take 1 orally every 6 hours as needed for pain. Dispense fifteen (15). No refill. Follow-up: Follow up with your doctor in about two days. Call for an appointment. Blood pressure screening was not performed during this visit because the patient has an active diagnosis of hypertension. ADDITIONAL INFORMATION Abdominal Pain,Uncertain Cause [Male] Based on your visit today, the exact cause of your abdominalpain is not clear. Your exam and tests do not indicate a dangerous cause at this time. However, the signs of a serious problem may take more time to appear. Although your evaluation was reassuring today, sometimes early in the course of many conditions, exam and lab tests can appear normal. Therefore, it is important for you to watch for any new symptoms or worsening of your condition. Causes It may not be obvious what caused your symptoms. Pay attention to things that do seem to make your symptoms worse or better and discuss this with your doctor when you follow up. Diagnosis The evaluation of abdominal pain in the emergency department may onlyrequire an exam by the doctor or it may include blood, urine or imaging studies, depending on many factors. Sometimes exams and tests can identify a cause but in many cases, a clear cause is not found. Further testing at follow up visits may help to suggest a clear diagnosis. Home Care Rest as much as possible until your next exam. Try to avoid any medications (unless otherwise directed by your doctor), foods, activities, or other factors that you may have contributed to your symptoms. Try to eat foods that you know that you have tolerated well in the past. Certain diets may be recommended for some conditions that cause abdominal pain. However, since the cause of your symptoms may not be clear, discuss your diet more with your primary care provider or specialist for further recommendations. Eating several small meals per day as opposed to 2 or 3 larger meals may help. Monitor closely for anything that may make your symptoms worse or better. Pay close attention to symptoms below that may indicate worsening of your condition. Follow Up and Precautions See your doctoras instructed or sooneror if your symptoms are not improving.In some cases, you may need more testing. When to Seek Medical Attention Contact your doctor or see medical attention ifany of the following occur: Pain is becoming worse You are unable to take your medications due to excessive vomiting Swelling of the abdomen Fever of 100.4F (38C) or higher, or as directed by your health care provider Blood in vomit or bowel movements (dark red or black color) Jaundice (yellow color of eyes and skin) New onset of weakness, dizziness or fainting New onset of chest, arm, back, neck or jaw pain You have been given the following additional information: Abdominal Pain, Unknown Cause, (Male) (Electronically signed by Scott Barnes Dr. 02/25/2017 8:57)
--- NOTE | 2017-02-25 08:57 | ED MAR SUMMARY ---
..... Medication Administration Record [facility] [address] [place], [place] [id number] Patient: TAL CANO Visit ID: [id number] 61y, M Weight: 127.0 kg Height/Length: 67 in BMI: 43.9 ALLERGIES: Beta Adrenergic Blockers
--- NOTE | 2017-02-25 08:57 | ED MED RECONCILIATION SUMMARY ---
Patient: TAL CANO Medication Reconciliation Report [facility] VisitID: [id number] [address] [place] [address] 61y, M Registration Date/Time: 02/24/2017 Weight: 127.0 kg Height/Length: 67 in. BMI: 43.9 ALLERGIES: Beta Adrenergic Blockers The patient's Home Medications are listed below: CONTINUE TAKING THE FOLLOWING MEDICATIONS: Advair Diskus Inhalation (250-50 mcg/dose), daily Atorvastatin Calcium Oral (20 mg) 1 tablet, daily Clotrimazole External Fexofenadine HCl Oral (180 mg) 1 tablet Fluticasone Propionate (Inhal) Inhalation Gabapentin Oral 300 mg, 3x a day Lactulose Oral Lantus Subcutaneous 35 units, every PM Lisinopril Oral (20 mg), 2x a day, 1 tab in am and 1/2 tab in afternoon Loratadine Oral 10 mg, daily MetFORMIN HCl Oral (1000 mg) 1 tablet, daily Nitrostat Sublingual 0.4 mg NovoLOG Subcutaneous 45 units, before meals, 45-50 Units at HS Omeprazole Oral (20 mg) 1 tablet, 2x a day ProAir HFA Inhalation 90 mcg Inhaler Senna Oral Trulicity Subcutaneous The source(s) of the original Home Medication information: patient The following Medications were given to the patient in the Emergency Department: None. The following Medications were prescribed to the patient: OxyIR 5 mg capsules: take 1 orally every 6 hours as needed for pain. Dispense fifteen (15). No refill. -- Scott Barnes Dr.
== END 2017-02-24 20:07 | disposition home or self-care (01) ==
LOC: ED SRH 14:30
DX: R10.31 Right lower quadrant pain (principal); D61.818 Other pancytopenia; I10 Essential (primary) hypertension; E11.9 Type 2 diabetes mellitus without complications; J45.909 Unspecified asthma, uncomplicated; K21.9 Gastro-esophageal reflux disease without esophagitis; Z79.899 Other long term (current) drug therapy; Z79.84 Long term (current) use of oral hypoglycemic drugs; Z79.4 Long term (current) use of insulin
CPT/HCPCS: 90004; 90100; 92235; 92530; 95059

== ENCOUNTER 2017-03-24 01:23 | Emergency (ER) | payer MEDICARE, OTHER ==
--- NOTE | 2017-03-24 03:01 | ED ORDER SUMMARY ---
..... Patient: TAL CANO OrderSheet [facility] VisitID: [id number] [address] [place] [address] 61y, M Registration Date/Time: 03/24/2017 ORDER SHEET Weight: 127.0 kg (stated) Allergies: Beta Adrenergic Blockers GENERAL ORDERS: Chest 1V Urgent (01:55 03/24/2017 Tierra Summers) (Ack 1:56 Tina) (2:02 Ulysses R.N.) Cardiac Panel Stat (:56 03/24/2017 Tierra Summers) (Ack 1:56 Tina) (1:58 Ulysses R.N.) MEDICATION ORDERS: IV FLUIDS: IV Saline Lock (:03/24/2017 Tierra Summers) (1:58 Ulysses R.Iram.) ORDER SHEET NOTES: [Electronically signed by Scott Barnes Dr. (03:03/24/2017)] [Electronically signed by Ann Richards R.N. (03:03/24/2017)] [Electronically locked/signed by Ann Richards R.N. (03:03/24/2017)]
--- NOTE | 2017-03-24 03:01 | ED CLINICAL REPORT ---
Clinical Report - Physicians/Mid Levels [facility] [address] [place] [address] 03/24/2017 1:25 Patient: TAL CANO Time Seen: 01:34; initial patient contact. Arrived- By private vehicle. Historian- patient. HISTORY OF PRESENT ILLNESS Chief Complaint: CHEST PAIN. At its maximum, severity described as mild. When seen in the E.D., severity described as mild. Modifying factors. Not worsened by anything. Not relieved by anything. This started about 2 hours ago and is still present (persistent). It was gradual in onset. Onset during rest. It is described as pressure and it is described as located in the left chest area. No radiation. No nausea, vomiting, difficulty breathing or diaphoresis. Similar symptoms previously: None. Recent medical care: Not recently seen/assessed. REVIEW OF SYSTEMS No fever, chills, cough, pedal edema or calf pain. No headache. He has had nasal congestion and sinus pain. All systems otherwise negative, except as recorded above. PAST HISTORY Lumbar Strain. Lumbar Radiculopathy. Perirectal Abscess. Knee Injury. Prior Nosebleeds. Foot Fracture. Abscess. Recent Travel. Allergic Rhinitis. Sinus Problems. Epistaxis. Sinusitis. Contusion. Anemia. Abnormal Liver Function Test. Constipation. Pneumonia. Coronary Artery Disease. Fever. Abdominal Pain. Atypical Chest Pain. Otitis Externa. TMJ Syndrome. Ingrown Toenail. Immunizations. Lifestyle / Substance Problems. Abnormal Test. Upper Extremity Pain. Paresthesia. Tetanus Status. Sleep Apnea. Gastroesophageal Reflux Disease. Hypercholesterolemia. Asthma. Diabetes Mellitus. Hypertension. Cervical Radiculopathy ADDITIONAL SURGERIES: Carpal Tunnel Surgery. Cholecystectomy. Knee Surgery. Mesh implant for rectum fistula. Rectal. Scrotal surgery. Tonsillectomy. SOCIAL HISTORY Former smoker. Alcohol use. Patient is a recovering alcoholic. No drug use. ADDITIONAL NOTES The nursing notes have been reviewed. PHYSICAL EXAM Vital Signs: 03/24/2017 01:28 BP: 159/48. HR: 84. RR: 16. O2 saturation: 98%. Temp: 99.2 F. Pain level now: 410. Have been reviewed. Hypertensive. Heart rate normal. Respiratory rate normal. Temperature normal. Oxygen saturation normal. Appearance: Alert. Oriented X3. No acute distress. Eyes: Pupils equal, round and reactive to light. Mild redness of the right conjunctiva; mild redness of the left conjunctiva. ENT: Pharynx normal. Neck: Normal inspection. No JVD. CVS: Normal heart rate and rhythm. 1/6 mid systolic murmur. Respiratory: No respiratory distress. Mild left mid- and anterior chest wall tenderness. The tenderness is well-localized and reproduces the patient's subjective complaint. Breath sounds normal. Abdomen: Soft and nontender. Bowel sounds normal. No organomegaly. No mass. Skin: Skin warm and dry. Normal skin color. Extremities: No calf tenderness. No lower extremity edema. Neuro: Oriented X 3. LABS, X-RAYS, AND EKG EKG: EKG time: (135). No acute process. No acute ischemia. Normal EKG. Normal sinus rhythm. Rate: 83. Normal P waves. Normal YOHANNES. Normal QRS complex. Normal axis. Normal ST and T waves, QT and QTc. Prior EKG unavailable. The study has been interpreted contemporaneously by me. The study has been independently viewed by me. The EKG appears to be a good tracing. I agree with and confirm the computer reading of the EKG. Interpretation time: 136. Chest X-ray: No acute disease. Mild cardiomegaly. Mediastinum normal. Great vessels normal. No infiltrate. Views: AP. Technique: good. The X-rays were independently viewed by me and interpreted contemporaneously by me. A comparison with prior films reveals that the findings are unchanged. Interpretation time: 02:23. Laboratory Tests: CBC w Diff: (CITLALI: 03/24/2017 01:30) ( MsgRcvd 03/24/2017 02:16) Final results Test Result Flag Units (Reference) WHITE BLOOD COUNT 2.6 L K/uL (4.5-11.5) RED BLOOD COUNT 3.29 L M/uL (4.50-5.90) HEMOGLOBIN 9.7 L gm/dL (13.5-17.5) HEMATOCRIT 28.8 L % (41.0-53.0) MEAN CELL VOLUME 87 fL (80-100) MEAN CORPUSCULAR HGB 30 pg (26-34) MEAN CORPUSCULAR HGB CONC 34 g/dL (31-37) RED CELL DISTRIBUTION WIDTH 16.0 H % (11.6-14.8) PLATELET COUNT 52 L K/uL (150-400) NEUTROPHIL % 69.8 % (50-75) LYMPH % 20.8 L % (25-40) MONO % 7.6 % (3-14) EOSINOPHIL % 1.3 % (0-4) BASOPHIL % 0.5 % (0-2) CHEM 13 PANEL: (CITLALI: 03/24/2017 01:30) ( MsgRcvd 03/24/2017 02:33) Final results Test Result Flag Units (Reference) GLUCOSE 136 H mg/dL (70-110) BUN 21 H mg/dL (7-18) CREATININE 1.4 H mg/dL (0.6-1.3) Estimated GFR 55.13 mL/min Estimated GFR- >60 mL/min Note: Persistent reduction over 3 months in eGFR<60 mL/min/1.73 m2 defines CKD. Patients with eGFR values>=60 mL/min/1.73 m2 may also have CKD if evidence ofpersistent proteinuria. Additional information may be foundat www.kidney.org. SODIUM 136 mmol/L (136-145) POTASSIUM 4.2 mmol/L (3.5-5.1) CHLORIDE 105 mmol/L (98-107) CARBON DIOXIDE 25 mmol/L (21-32) CALCIUM 8.4 L mg/dL (8.5-10.1) TOTAL PROTEIN 7.4 g/dL (6.4-8.2) ALBUMIN 2.9 L g/dL (3.3-5.0) BILIRUBIN, TOTAL 1.2 H mg/dL (0.0-1.0) ALKALINE PHOSPHATASE 367 H U/L (46-116) AST (SGOT) 54 H U/L (15-37) ALT (SGPT) 49 U/L (12-78) MAGNESIUM 1.9 mg/dL (1.8-2.4) CPK 45 U/L (24-260) TROPONIN I <0.05 ng/mL (0.00-1.5) TROPONIN REFERENCE RANGE:<0.1 NEGATIVE0.1-1.5 INDETERMINANT>1.5 POSITIVE . PROGRESS AND PROCEDURES Disposition: Discharged home in good and improved condition. Condition: good. CLINICAL IMPRESSION Chest wall pain .12 lead EKG performed. Chronic allergic rhinitis secondary to pollen. (Pancytopenia, chronic). INSTRUCTIONS Your Current Medications: CONTINUE TAKING THE FOLLOWING MEDICATIONS: Advair Diskus Inhalation : Aerosol Powder Breath Activated 250-50 mcg/dose, daily. Atorvastatin Calcium Oral : Tablet 20 mg, 1 tablet daily. Clotrimazole External. Fexofenadine HCl Oral : Tablet 180 mg, 1 tablet. Fluticasone Propionate (Inhal) Inhalation. Gabapentin Oral : 300 mg 3x a day. Lactulose Oral. Lantus Subcutaneous : 35 units every PM. Lisinopril Oral : Tablet 20 mg, 2x a day, 1 tab in am and 1/2 tab in afternoon. Loratadine Oral : 10 mg daily. MetFORMIN HCl Oral : Tablet 1000 mg, 1 tablet daily. Nitrostat Sublingual : 0.4 mg, prn. NovoLOG Subcutaneous : 45 units before meals, 45-50 Units at HS. Omeprazole Oral : Tablet Delayed Release 20 mg, 1 tablet 2x a day. ProAir HFA Inhalation : 90 mcg Inhaler, prn. Senna Oral. Trulicity Subcutaneous. Prescription Medications: Flonase nasal spray: 2 sprays to each nostril daily. Dispense one (1) unit. No refills. Substitution is permissible Follow-up: Follow up with your doctor in about two days. Call for an appointment. Blood pressure screening was not performed during this visit because the patient has an active diagnosis of hypertension. (Electronically signed by Scott Branes Dr. 03/24/2017 3:01)
--- NOTE | 2017-03-24 03:01 | ED NURSING NOTES ---
Clinical Report - Nurses [facility] [address] [place] [address] 03/24/2017 1:25 Patient: TAL CANO TRIAGE Triage time 01:28. Acuity: LEVEL 2. Chief Complaint: CHEST PAIN. --01:32 Nataliia Fall R.N. 01:28 03/24/17. BP: 159/48 taken on the left arm, while lying. HR: 84. RR: 16. O2 saturation: 98% on room air. Temp: 99.2 F (oral). Pain level now: 02/09. --01:32 Nataliia Fall R.N. Weight: 127 kg stated. Height/Length: 67 inches Per Patient. BMI: 43.9. --01:30 Nataliia Fall R.N. Medications Advair Diskus Inhalation (Aerosol Powder Breath Activated 250-50 mcg/dose), daily. Atorvastatin Calcium Oral (Tablet 20 mg) 1 tablet, daily. Clotrimazole External. Fexofenadine HCl Oral (Tablet 180 mg) 1 tablet. Fluticasone Propionate (Inhal) Inhalation. Gabapentin Oral 300 mg, 3x a day. Lactulose Oral. Lantus Subcutaneous 35 units, every PM. --01:30 Nataliia Fall R.N. Lisinopril Oral (Tablet 20 mg), 2x a day (1 tab in am and 1/2 tab in afternoon). Loratadine Oral 10 mg, daily. MetFORMIN HCl Oral (Tablet 1000 mg) 1 tablet, daily. Nitrostat Sublingual 0.4 mg, as needed. NovoLOG Subcutaneous 45 units, before meals (45-50 Units at HS). Omeprazole Oral (Tablet Delayed Release 20 mg) 1 tablet, 2x a day. ProAir HFA Inhalation 90 mcg Inhaler, as needed. Senna Oral. Trulicity Subcutaneous. --01:30 Nataliia Fall R.N. Allergies Beta Adrenergic Blockers.(anxiety) --01:30 Nataliia Fall R.N. History Arrived by private vehicle. Historian: patient and family. Accompanied by family. Primary physician (vinod). This started last night. Onset was abrupt. Symptoms still present (at about 2300). ( pain behind both eyes). He has had difficulty breathing. PAST MEDICAL HX: Immunizations: up-to-date. SOCIAL HX: Smoker- current status unknown. No alcohol use or drug use. No infectious disease exposure. ABUSE ASSESSMENT: No report of abuse. SELF HARM ASSESSMENT: A self harm assessment was performed. The patient answered "no" to the question "Have you recently felt down, depressed, or hopeless?", "Have you noticed less interest or pleasure in doing things?", "Do you have thoughts of harming or killing yourself?", "Are you here because you tried to hurt yourself?", "Have you ever tried to hurt yourself before today?", "Have you recently had thoughts about harming or killing others?" and "Do you have any dangerous items in your possession?". FALL RISK ASSESSMENT: Fall risk assessment completed. No fall risk identified. NUTRITIONAL RISK ASSESSMENT: The nutritional risk assessment revealed no deficiencies. FUNCTIONAL ASSESSMENT: Functional assessment: no impairments noted. LEARNING NEEDS ASSESSMENT: The learning needs assessment revealed no barriers. SKIN INTEGRITY ASSESSMENT: Skin integrity risk assessment completed. No skin integrity risk identified. --:32 Nataliia Fall R.N. PROBLEMS: Lumbar Strain. Lumbar Radiculopathy. Perirectal Abscess. Knee Injury. Prior Nosebleeds. Foot Fracture. Abscess. Recent Travel. Allergic Rhinitis. Sinus Problems. Epistaxis. Sinusitis. Contusion. Anemia. Abnormal Liver Function Test. Constipation. Pneumonia. Coronary Artery Disease. Fever. Abdominal Pain. Atypical Chest Pain. Otitis Externa. TMJ Syndrome. Ingrown Toenail. Immunizations. Lifestyle / Substance Problems. Abnormal Test. Upper Extremity Pain. Paresthesia. Tetanus Status. Sleep Apnea. Gastroesophageal Reflux Disease. Hypercholesterolemia. Asthma. Diabetes Mellitus. Hypertension. --: Nataliia Fall R.N. Cervical Radiculopathy [RuleOut]. --:31 Nataliia Fall R.N. ADDITIONAL SURGERIES: Carpal Tunnel Surgery. Cholecystectomy. Knee Surgery. Mesh implant for rectum fistula. Rectal. Scrotal surgery. Tonsillectomy. --:31 Nataliia Fall R.N. Interventions ID band on patient. --01:32 Nataliia Fall R.N. PHYSICAL ASSESSMENT To room via wheelchair. GENERAL / NEURO / PSYCH: Alert. Oriented X 4. Appears in pain. HEENT: Mucous membranes are pink. RESPIRATORY: Respirations not labored. Chest nontender. Breath sounds within normal limits. CVS: Normal sinus rhythm noted. Heart sounds within normal limits. Pulses within normal limits. Capillary refill less than 2 seconds. GI / : Abdomen soft and nontender. EXTREMITIES: Bilateral non-pitting edema of the lower extremities involving both feet and both ankles. SKIN: Skin is warm and dry. Normal skin turgor. --01:34 Nataliia Fall R.N. GENERAL / NEURO / PSYCH: Awake. Oriented X 4. Alert. Speech normal. Mood/affect normal. Moves all extremities equally. No motor deficit. No sensory deficit. ( pt c/o headache behind both eyes that started yesterday lasting into today, PERRLA, denies N/V). HEENT: Pupils equal, round and reactive to light. --01:39 Nataliia Fall R.N. NURSING PROGRESS NOTES Two patient identifiers checked. Call light placed in reach. Side rails up x 1. Bed placed in lowest position. Brakes of bed on. --01:35 Nataliia Fall R.N. Patient ready for evaluation- chart flagged. --01:35 Nataliia Fall R.N. nurse monitoring, pulse oximeter and NIBP monitor placed on patient; monitoring tech- Lead II; monitor alarms on. Patient gowned. --01:35 Nataliia Fall R.N. 01:30 03/24/2017 Site #1 started via IV in the left antecubital space with an 20g angiocath, with aseptic technique and good blood return; one attempt. Blood drawn: rainbow set. Labeled in the presence of the patient and sent to the lab. Saline lock flushed with 10 mL saline. --01:36 Nataliia Fall R.N. EKG time: (0136 AM). EKG was ordered, performed by a tech and shown to the ED physician. --01:57 Mary Anne Gomez ( radiology at bedside for xray). --02:02 Nataliia Fall R.N. DISPOSITION / DISCHARGE Condition at departure: stable. No learning barriers present. Discharge instructions provided and reviewed with the patient. Patient verbalized understanding. Written instructions provided in Ch[place]. The patient was discharged home and accompanied by family. He left the Emergency Department ambulatory and via private vehicle. Family member driving. --03:28 Ann Richards R.N. 03:27 03/24/17. BP: 137/47. HR: 81. RR: 18 (regular and unlabored). O2 saturation: 98% on room air. Temp: deferred. Mejia-Saldivar pain scale: 10. --03:28 Ann Richards R.N. 03:28 03/24/2017 Site #1 removed upon discharge. Catheter intact. Manual pressure and bandage applied. --03:28 Ann Richards R.N. Locked/Released at 03/24/2017 3:29 by Ann Richards R.N.
--- NOTE | 2017-03-24 03:01 | ED ORDER SUMMARY ---
..... Patient: TAL CANO OrderSheet [facility] VisitID: [id number] [address] [place] [address] 61y, M Registration Date/Time: 03/24/2017 ORDER SHEET Weight: 127.0 kg (stated) Allergies: Beta Adrenergic Blockers GENERAL ORDERS: Chest 1V Urgent (01:55 03/24/2017 Tierra Summers) (Ack 1:56 Tina) (2:02 Ulysses R.N.) Cardiac Panel Stat (:56 03/24/2017 Tierra Summers) (Ack 1:56 Tina) (1:58 Ulysses R.N.) MEDICATION ORDERS: IV FLUIDS: IV Saline Lock (:03/24/2017 Tierra Summers) (1:58 Ulysses R.Iram.) ORDER SHEET NOTES: [Electronically signed by Scott Barnes Dr. (03:03/24/2017)] [Electronically signed by Ann Richards R.N. (03:03/24/2017)] [Electronically locked/signed by Ann Richards R.N. (03:03/24/2017)]
--- NOTE | 2017-03-24 03:29 | ED MED RECONCILIATION SUMMARY ---
Patient: TAL CANO Medication Reconciliation Report [facility] VisitID: [id number] [address] [place] [address] 61y, M Registration Date/Time: 03/24/2017 Weight: 127.0 kg Height/Length: 67 in. BMI: 43.9 ALLERGIES: Beta Adrenergic Blockers The patient's Home Medications are listed below: CONTINUE TAKING THE FOLLOWING MEDICATIONS: Advair Diskus Inhalation (250-50 mcg/dose), daily Atorvastatin Calcium Oral (20 mg) 1 tablet, daily Clotrimazole External Fexofenadine HCl Oral (180 mg) 1 tablet Fluticasone Propionate (Inhal) Inhalation Gabapentin Oral 300 mg, 3x a day Lactulose Oral Lantus Subcutaneous 35 units, every PM Lisinopril Oral (20 mg), 2x a day, 1 tab in am and 1/2 tab in afternoon Loratadine Oral 10 mg, daily MetFORMIN HCl Oral (1000 mg) 1 tablet, daily Nitrostat Sublingual 0.4 mg NovoLOG Subcutaneous 45 units, before meals, 45-50 Units at HS Omeprazole Oral (20 mg) 1 tablet, 2x a day ProAir HFA Inhalation 90 mcg Inhaler Senna Oral Trulicity Subcutaneous The source(s) of the original Home Medication information: Not obtained. The following Medications were given to the patient in the Emergency Department: None. The following Medications were prescribed to the patient: Flonase nasal spray: 2 sprays to each nostril daily. Dispense one (1) unit. No refills. Substitution is permissible -- Scott Barnes Dr.
--- NOTE | 2017-03-24 03:29 | ED DISCHARGE INSTRUCTIONS ---
Patient: TAL CANO General Instructions [facility] VisitID: [id number] [address] [place] [address] 61y, M Registration Date/Time: 03/24/2017 Chest wall pain .12 lead EKG performed. Chronic allergic rhinitis secondary to pollen. (Pancytopenia, chronic). INSTRUCTIONS Your Current Medications: CONTINUE TAKING THE FOLLOWING MEDICATIONS: Advair Diskus Inhalation : Aerosol Powder Breath Activated 250-50 mcg/dose, daily. Atorvastatin Calcium Oral : Tablet 20 mg, 1 tablet daily. Clotrimazole External. Fexofenadine HCl Oral : Tablet 180 mg, 1 tablet. Fluticasone Propionate (Inhal) Inhalation. Gabapentin Oral : 300 mg 3x a day. Lactulose Oral. Lantus Subcutaneous : 35 units every PM. Lisinopril Oral : Tablet 20 mg, 2x a day, 1 tab in am and 1/2 tab in afternoon. Loratadine Oral : 10 mg daily. MetFORMIN HCl Oral : Tablet 1000 mg, 1 tablet daily. Nitrostat Sublingual : 0.4 mg, prn. NovoLOG Subcutaneous : 45 units before meals, 45-50 Units at HS. Omeprazole Oral : Tablet Delayed Release 20 mg, 1 tablet 2x a day. ProAir HFA Inhalation : 90 mcg Inhaler, prn. Senna Oral. Trulicity Subcutaneous. Prescription Medications: Flonase nasal spray: 2 sprays to each nostril daily. Dispense one (1) unit. No refills. Substitution is permissible Follow-up: Follow up with your doctor in about two days. Call for an appointment. Blood pressure screening was not performed during this visit because the patient has an active diagnosis of hypertension. ADDITIONAL INFORMATION Chest Strain A strain of the chest is due to stretching and tearing of the muscle fibers between the ribs. This may occur as a result of severe coughing, strenuous lifting or twisting injuries of the upper back. This usually causes increased pain with movement or deep breathing. This may take a few days to a few weeks to heal. Home Care: Rest. Avoid heavy lifting or strenuous exertion. Avoid any activity that causes pain. If you have a severe cough, use a cough syrup such as Robitussin DM (containing dextromethorphan) unless another cough medicine was prescribed. You may use acetaminophen (Tylenol) or ibuprofen (Motrin, Advil) to control pain, unless another medicine was prescribed. [ NOTE: If you have chronic liver or kidney disease or ever had a stomach ulcer or GI bleeding, talk with your doctor before using these medicines.] Follow Up with your doctor as directed. Get Prompt Medical Attention if any of the following occur: A change in the type of pain: if it feels different, becomes more severe, lasts longer, or begins to spread into your shoulder, arm, neck, jaw or back Shortness of breath or increased pain with breathing Cough with dark colored sputum (phlegm) or blood Weakness, dizziness, or fainting Fever of 100.4F (38C) or higher, or as directed by your healthcare provider Seasonal Allergy Seasonal Allergy is also called Hay Fever. It may occur after a person is exposed to pollens released from grasses, weeds, trees and shrubs. This type of allergy occurs during the spring and summer when the pollen contacts the lining of the nose, eyes, eyelids, sinuses and throat. This causes discharge from the eyes or nose. Violent sneezing, nasal congestion, post-nasal drip, itching of the eyes, nose, throat and mouth, scratchy throat, and dry cough may also occur. Home Care: Seasonal allergy cannot be cured, but symptoms can be reduced by these measures: Avoid or reduce exposure to the allergen as much as you can: Stay indoors on hot windy days of pollen season. Keep windows and doors closed. Use an air conditioner with an electrostatic filter. DECONGESTANT pills and sprays (Sudafed, NeoSynephrine, Afrin) reduce tissue swelling and watery discharge. If you use the sprays too much, the symptoms may get worse. Do not use these more often than recommended. Do not use decongestants in children unless advised by your doctor. ANTIHISTAMINES block the release of histamine during the allergic response. They work better when taken BEFORE symptoms develop. Unless a prescription antihistamine was prescribed, you may take Claritin (loratadine). This is an vayj-hny-melcpnb non-sedating antihistamine. It does not make you drowsy. STEROID nasal sprays (Beconase, Vancenase, Nasalide) or oral steroids (Prednisone) may also be prescribed. These help to reduce the local inflammation that adds to the allergic response. If you have ASTHMA, pollen season may make your asthma symptoms worse. It is important that you use your asthma medicines as directed during this time to prevent or treat attacks. Some persons with ASTHMA have asthma symptoms that get worse when they take ANTIHISTAMINES. This is due to the drying effect on the lungs. If you notice this, stop the antihistamines, drink extra fluids and notify your doctor. If you have sinus congestion or drainage, a saline nasal rinse may give relief. A saline nasal rinse lessens the swelling and clears excess mucus. This allows sinuses to drain. Prepackaged kits are sold at most drug stores. These contain pre-mixed salt packets and an irrigation device. Follow Up with your doctor or as directed by our staff if your symptoms do not improve with the treatment advised. Get Prompt Medical Attention if any of the following occur: Facial, ear or sinus pain; colored drainage from the nose Severe headache Fever of 100.4F (38C) or higher, or as directed by your healthcare provider Wheezing or trouble breathing (If you know you have asthma, return if your asthma symptoms do not respond to the usual doses of your medicine) Cough with lots of colored sputum (mucus) Fluticasone Propionate Nasal spray, solution What is this medicine? FLUTICASONE (floo TIK a sone) is a corticosteroid. It helps decrease inflammation in your nose. This medicine is used to treat the symptoms of allergies like sneezing, itching, and runny or stuffy nose. How should I use this medicine? This medicine is for use in the nose. Follow the directions on your prescription label. This medicine works best if used regularly. Do not use more often than directed. Make sure that you are using your nasal spray correctly. Ask you doctor or health care provider if you have any questions. Talk to your marketing communications specialist regarding the use of this medicine in children. While this drug may be prescribed for children as young as 4 years old for selected conditions, precautions do apply. What side effects may I notice from receiving this medicine? Side effects that you should report to your doctor or health career consultant as soon as possible: allergic reactions like skin rash, itching or hives, swelling of the face, lips, or tongue changes in vision flu-like symptoms white patches or sores in the mouth or nose Side effects that usually do not require medical attention (report to your doctor or health career consultant if they continue or are bothersome): burning or irritation inside the nose or throat cough headache nosebleed unusual taste or smell What may interact with this medicine? ketoconazole metyrapone some medicines for HIV vaccines What if I miss a dose? If you miss a dose, use it as soon as you remember. If it is almost time for your next dose, use only that dose and continue with your regular schedule. Do not use double or extra doses. Where should I keep my medicine? Keep out of the reach of children. Store at room temperature between 15 and 30 degrees C (59 and 86 degrees F). Throw away any unused medicine after the expiration date. What should I tell my health care provider before I take this medicine? They need to know if you have any of these conditions: infection, like tuberculosis, herpes, or fungal infection recent surgery on nose or sinuses taking corticosteroid by mouth an unusual or allergic reaction to fluticasone, steroids, other medicines, foods, dyes, or preservatives or trying to get breast-feeding What should I watch for while using this medicine? Visit your doctor or health career consultant for regular checks on your progress. Some symptoms may improve within 12 hours after starting use. Check with your doctor or health career consultant if there is no improvement in your condition after 3 weeks of use. Do not come in contact with people who have chickenpox or the measles while you are taking this medicine. If you do, call your doctor right away. You have been given the following additional information: Chest Wall Strain Seasonal Allergy Fluticasone Propionate Nasal spray, solution (Electronically signed by Scott Barnes Dr. 03/24/2017 3:01)
--- NOTE | 2017-03-24 03:29 | ED MAR SUMMARY ---
..... Medication Administration Record [facility] [address] [place], [place] [id number] Patient: TAL CANO Visit ID: [id number] 61y, M Weight: 127.0 kg Height/Length: 67 in BMI: 43.9 ALLERGIES: Beta Adrenergic Blockers
--- NOTE | 2017-03-24 03:29 | ED DISCHARGE INSTRUCTIONS ---
Patient: TAL CANO General Instructions [facility] VisitID: [id number] [address] [place] [address] 61y, M Registration Date/Time: 03/24/2017 Chest wall pain .12 lead EKG performed. Chronic allergic rhinitis secondary to pollen. (Pancytopenia, chronic). INSTRUCTIONS Your Current Medications: CONTINUE TAKING THE FOLLOWING MEDICATIONS: Advair Diskus Inhalation : Aerosol Powder Breath Activated 250-50 mcg/dose, daily. Atorvastatin Calcium Oral : Tablet 20 mg, 1 tablet daily. Clotrimazole External. Fexofenadine HCl Oral : Tablet 180 mg, 1 tablet. Fluticasone Propionate (Inhal) Inhalation. Gabapentin Oral : 300 mg 3x a day. Lactulose Oral. Lantus Subcutaneous : 35 units every PM. Lisinopril Oral : Tablet 20 mg, 2x a day, 1 tab in am and 1/2 tab in afternoon. Loratadine Oral : 10 mg daily. MetFORMIN HCl Oral : Tablet 1000 mg, 1 tablet daily. Nitrostat Sublingual : 0.4 mg, prn. NovoLOG Subcutaneous : 45 units before meals, 45-50 Units at HS. Omeprazole Oral : Tablet Delayed Release 20 mg, 1 tablet 2x a day. ProAir HFA Inhalation : 90 mcg Inhaler, prn. Senna Oral. Trulicity Subcutaneous. Prescription Medications: Flonase nasal spray: 2 sprays to each nostril daily. Dispense one (1) unit. No refills. Substitution is permissible Follow-up: Follow up with your doctor in about two days. Call for an appointment. Blood pressure screening was not performed during this visit because the patient has an active diagnosis of hypertension. ADDITIONAL INFORMATION Chest Strain A strain of the chest is due to stretching and tearing of the muscle fibers between the ribs. This may occur as a result of severe coughing, strenuous lifting or twisting injuries of the upper back. This usually causes increased pain with movement or deep breathing. This may take a few days to a few weeks to heal. Home Care: Rest. Avoid heavy lifting or strenuous exertion. Avoid any activity that causes pain. If you have a severe cough, use a cough syrup such as Robitussin DM (containing dextromethorphan) unless another cough medicine was prescribed. You may use acetaminophen (Tylenol) or ibuprofen (Motrin, Advil) to control pain, unless another medicine was prescribed. [ NOTE: If you have chronic liver or kidney disease or ever had a stomach ulcer or GI bleeding, talk with your doctor before using these medicines.] Follow Up with your doctor as directed. Get Prompt Medical Attention if any of the following occur: A change in the type of pain: if it feels different, becomes more severe, lasts longer, or begins to spread into your shoulder, arm, neck, jaw or back Shortness of breath or increased pain with breathing Cough with dark colored sputum (phlegm) or blood Weakness, dizziness, or fainting Fever of 100.4F (38C) or higher, or as directed by your healthcare provider Seasonal Allergy Seasonal Allergy is also called Hay Fever. It may occur after a person is exposed to pollens released from grasses, weeds, trees and shrubs. This type of allergy occurs during the spring and summer when the pollen contacts the lining of the nose, eyes, eyelids, sinuses and throat. This causes discharge from the eyes or nose. Violent sneezing, nasal congestion, post-nasal drip, itching of the eyes, nose, throat and mouth, scratchy throat, and dry cough may also occur. Home Care: Seasonal allergy cannot be cured, but symptoms can be reduced by these measures: Avoid or reduce exposure to the allergen as much as you can: Stay indoors on hot windy days of pollen season. Keep windows and doors closed. Use an air conditioner with an electrostatic filter. DECONGESTANT pills and sprays (Sudafed, NeoSynephrine, Afrin) reduce tissue swelling and watery discharge. If you use the sprays too much, the symptoms may get worse. Do not use these more often than recommended. Do not use decongestants in children unless advised by your doctor. ANTIHISTAMINES block the release of histamine during the allergic response. They work better when taken BEFORE symptoms develop. Unless a prescription antihistamine was prescribed, you may take Claritin (loratadine). This is an bkfr-fud-wqgthfo non-sedating antihistamine. It does not make you drowsy. STEROID nasal sprays (Beconase, Vancenase, Nasalide) or oral steroids (Prednisone) may also be prescribed. These help to reduce the local inflammation that adds to the allergic response. If you have ASTHMA, pollen season may make your asthma symptoms worse. It is important that you use your asthma medicines as directed during this time to prevent or treat attacks. Some persons with ASTHMA have asthma symptoms that get worse when they take ANTIHISTAMINES. This is due to the drying effect on the lungs. If you notice this, stop the antihistamines, drink extra fluids and notify your doctor. If you have sinus congestion or drainage, a saline nasal rinse may give relief. A saline nasal rinse lessens the swelling and clears excess mucus. This allows sinuses to drain. Prepackaged kits are sold at most drug stores. These contain pre-mixed salt packets and an irrigation device. Follow Up with your doctor or as directed by our staff if your symptoms do not improve with the treatment advised. Get Prompt Medical Attention if any of the following occur: Facial, ear or sinus pain; colored drainage from the nose Severe headache Fever of 100.4F (38C) or higher, or as directed by your healthcare provider Wheezing or trouble breathing (If you know you have asthma, return if your asthma symptoms do not respond to the usual doses of your medicine) Cough with lots of colored sputum (mucus) Fluticasone Propionate Nasal spray, solution What is this medicine? FLUTICASONE (floo TIK a sone) is a corticosteroid. It helps decrease inflammation in your nose. This medicine is used to treat the symptoms of allergies like sneezing, itching, and runny or stuffy nose. How should I use this medicine? This medicine is for use in the nose. Follow the directions on your prescription label. This medicine works best if used regularly. Do not use more often than directed. Make sure that you are using your nasal spray correctly. Ask you doctor or health care provider if you have any questions. Talk to your draw bench operator regarding the use of this medicine in children. While this drug may be prescribed for children as young as 4 years old for selected conditions, precautions do apply. What side effects may I notice from receiving this medicine? Side effects that you should report to your doctor or health health care consultant as soon as possible: allergic reactions like skin rash, itching or hives, swelling of the face, lips, or tongue changes in vision flu-like symptoms white patches or sores in the mouth or nose Side effects that usually do not require medical attention (report to your doctor or health health care consultant if they continue or are bothersome): burning or irritation inside the nose or throat cough headache nosebleed unusual taste or smell What may interact with this medicine? ketoconazole metyrapone some medicines for HIV vaccines What if I miss a dose? If you miss a dose, use it as soon as you remember. If it is almost time for your next dose, use only that dose and continue with your regular schedule. Do not use double or extra doses. Where should I keep my medicine? Keep out of the reach of children. Store at room temperature between 15 and 30 degrees C (59 and 86 degrees F). Throw away any unused medicine after the expiration date. What should I tell my health care provider before I take this medicine? They need to know if you have any of these conditions: infection, like tuberculosis, herpes, or fungal infection recent surgery on nose or sinuses taking corticosteroid by mouth an unusual or allergic reaction to fluticasone, steroids, other medicines, foods, dyes, or preservatives or trying to get breast-feeding What should I watch for while using this medicine? Visit your doctor or health health care consultant for regular checks on your progress. Some symptoms may improve within 12 hours after starting use. Check with your doctor or health health care consultant if there is no improvement in your condition after 3 weeks of use. Do not come in contact with people who have chickenpox or the measles while you are taking this medicine. If you do, call your doctor right away. You have been given the following additional information: Chest Wall Strain Seasonal Allergy Fluticasone Propionate Nasal spray, solution (Electronically signed by Scott Barnes Dr. 03/24/2017 3:01)
--- NOTE | 2017-03-24 03:29 | ED MAR SUMMARY ---
..... Medication Administration Record [facility] [address] [place], [place] [id number] Patient: TAL CANO Visit ID: [id number] 61y, M Weight: 127.0 kg Height/Length: 67 in BMI: 43.9 ALLERGIES: Beta Adrenergic Blockers
--- NOTE | 2017-03-24 03:29 | ED MED RECONCILIATION SUMMARY ---
Patient: TAL CANO Medication Reconciliation Report [facility] VisitID: [id number] [address] [place] [address] 61y, M Registration Date/Time: 03/24/2017 Weight: 127.0 kg Height/Length: 67 in. BMI: 43.9 ALLERGIES: Beta Adrenergic Blockers The patient's Home Medications are listed below: CONTINUE TAKING THE FOLLOWING MEDICATIONS: Advair Diskus Inhalation (250-50 mcg/dose), daily Atorvastatin Calcium Oral (20 mg) 1 tablet, daily Clotrimazole External Fexofenadine HCl Oral (180 mg) 1 tablet Fluticasone Propionate (Inhal) Inhalation Gabapentin Oral 300 mg, 3x a day Lactulose Oral Lantus Subcutaneous 35 units, every PM Lisinopril Oral (20 mg), 2x a day, 1 tab in am and 1/2 tab in afternoon Loratadine Oral 10 mg, daily MetFORMIN HCl Oral (1000 mg) 1 tablet, daily Nitrostat Sublingual 0.4 mg NovoLOG Subcutaneous 45 units, before meals, 45-50 Units at HS Omeprazole Oral (20 mg) 1 tablet, 2x a day ProAir HFA Inhalation 90 mcg Inhaler Senna Oral Trulicity Subcutaneous The source(s) of the original Home Medication information: Not obtained. The following Medications were given to the patient in the Emergency Department: None. The following Medications were prescribed to the patient: Flonase nasal spray: 2 sprays to each nostril daily. Dispense one (1) unit. No refills. Substitution is permissible -- Scott Barnes Dr.
--- NOTE | 2017-03-24 05:47 | DIAGNOSTIC IMAGING REPORT ---
PROCEDURE: XR CHEST 1 VIEW INDICATION: CHEST PAIN TECHNIQUE: Portable AP view 02:03 a.m. COMPARISON: Chest x-ray 05/15/2014 FINDINGS: Minor left basilar scarring. Stable mild cardiomegaly. Normal pulmonary vascularity. Thorax is normal. IMPRESSION: 1. Stable mild cardiomegaly 2. Left basilar scarring
== END 2017-03-24 03:29 | disposition home or self-care (01) ==
LOC: ED SRH 01:23
DX: R07.89 Other chest pain (principal); J30.1 Allergic rhinitis due to pollen; D61.818 Other pancytopenia; I10 Essential (primary) hypertension; E11.9 Type 2 diabetes mellitus without complications; E78.00 Pure hypercholesterolemia, unspecified; I25.10 Atherosclerotic heart disease of native coronary artery without angina pectoris; K21.9 Gastro-esophageal reflux disease without esophagitis; Z87.891 Personal history of nicotine dependence
CPT/HCPCS: 90100; 90616; 92610; 92720; 95059